=== PATIENT | female | born 1990 | race Caucasian/White ===

== ENCOUNTER 2016-09-11 13:49 | Emergency (ER) | payer MEDICAID ==
[~2016-09-11] VITALS: Ht 165.1 cm; Wt 55.9 kg
[~2016-09-11 13:49] MED LIST: ALBUTEROL0.09 MG/A1 IH; COMBIVENT INH14.7 GM IH; DEPO-PROVER150 MG/M1 IM; FLEXERIL10 MG PO; LORTAB 5/500 501 TAB PO; MACROBID100 MG PO; PERCOCET 5/321 UDTAB PO; PHENERGAN W/CO120 ML PO; PRENATAL VITAMI1 TA5 PO; REGLAN 10MG10 MG/TAB PO; ZOLOFT; [UNRECOGNIZED DRUG - OTHER]
[2016-09-11 13:50] VITALS: BP 112/77; TEMP 99
[2016-09-11] MEDS ORDERED: FIORICET 325 MG1 TA1 PO (13:54)
[2016-09-11] MEDS ORDERED: FLEXERIL 1010 MG/TAB PO (13:54)
[2016-09-11] MEDS ORDERED: CELEXA40 MG PO (13:54)
[2016-09-11] MEDS ORDERED: MERIBIN5 MG PO (13:55)
[2016-09-11] MEDS ORDERED: ZYRTEC 10MG10 MG PO (13:55)
[2016-09-11] MEDS ORDERED: NORCO 325 MG-51 TAB PO (14:35)
[2016-09-11] MEDS ORDERED: PEN-VEE K500 MG PO (14:35)
[2016-09-11 14:49] VITALS: PULSE 92
== END 2016-09-11 14:52 | disposition home or self-care (01) ==
LOC: COL.ER 13:49
DX: K04.7 Periapical abscess without sinus (principal); K03.81 Cracked tooth; F17.210 Nicotine dependence, cigarettes, uncomplicated

== ENCOUNTER → 2016-12-08 | Outpatient (CLI) | payer MEDICAID ==
[~2016-12-08] MED LIST changes: +CELEXA40 MG PO; +FIORICET 325 MG1 TA1 PO; +FLEXERIL 1010 MG/TAB PO; +MERIBIN5 MG PO; +NORCO 325 MG-51 TAB PO; +PEN-VEE K500 MG PO; +ZYRTEC 10MG10 MG PO
== END ==
LOC: MHCPAIN 08:28
DX: G89.29 Other chronic pain (principal); M54.12 Radiculopathy, cervical region; M47.812 Spondylosis without myelopathy or radiculopathy, cervical region; R51 Headache
CPT/HCPCS: G0463

== ENCOUNTER → 2016-12-15 | Outpatient (CLI) | payer MEDICAID | LOC: COL.RAD 12:01 | DX: Q04.8 Other specified congenital malformations of brain (principal); Z86.69 Personal history of other diseases of the nervous system and sense organs | CPT/HCPCS: A9585 ==

== ENCOUNTER → 2017-01-06 | Outpatient (CLI) | payer MEDICAID | LOC: MHCPAIN 12:05 | DX: G89.29 Other chronic pain (principal); M50.90 Cervical disc disorder, unspecified, unspecified cervical region; M54.12 Radiculopathy, cervical region; R51 Headache; F17.210 Nicotine dependence, cigarettes, uncomplicated | CPT/HCPCS: G0463 ==

== ENCOUNTER → 2017-01-08 | Outpatient (CLI) | payer MEDICAID | LOC: MHCPAIN 09:31 | DX: M50.323 Other cervical disc degeneration at C6-C7 level (principal); M54.12 Radiculopathy, cervical region | CPT/HCPCS: J1100; Q9967 ==

== ENCOUNTER → 2017-02-09 | Outpatient (CLI) | payer MEDICAID | LOC: MHCPAIN 12:32 | DX: G89.29 Other chronic pain (principal); M50.90 Cervical disc disorder, unspecified, unspecified cervical region; R51 Headache; M79.2 Neuralgia and neuritis, unspecified; F17.210 Nicotine dependence, cigarettes, uncomplicated | CPT/HCPCS: G0463 ==

== ENCOUNTER → 2017-04-07 | Outpatient (CLI) | payer MEDICAID | LOC: MHCPAIN 11:26 | DX: G89.29 Other chronic pain (principal); M50.322 Other cervical disc degeneration at C5-C6 level; G62.9 Polyneuropathy, unspecified | CPT/HCPCS: G0463 ==

== ENCOUNTER → 2017-05-26 | Outpatient (CLI) | payer MEDICAID | LOC: MHCPAIN 09:29 | DX: G89.29 Other chronic pain (principal); M50.90 Cervical disc disorder, unspecified, unspecified cervical region; F17.210 Nicotine dependence, cigarettes, uncomplicated | CPT/HCPCS: G0463 ==

== ENCOUNTER → 2017-05-26 | Outpatient (CLI) | payer MEDICAID ==
[2017-05-26 11:24] LABS: ADJUSTED CALCIUM 9.1 mg/dL (8.4-10.2); ALBUMIN 4.4 gm/dL (3.5-5.0); BILIRUBIN,TOTAL 0.3 mg/dL (0.0-1.0); CALCIUM 9.4 mg/dL (8.4-10.2); CREATININE, serum 0.63 mg/dL (0.52-1.25); POTASSIUM 4.6 mmol/L (3.4-5.0); TOTAL PROTEIN 7.5 gm/dL (6.4-8.2)
== END ==
LOC: COL.LAB 10:05
PROVIDERS: Anesthesiology Pain Medicine
DX: Z51.81 Encounter for therapeutic drug level monitoring (principal)

== ENCOUNTER → 2017-12-22 | Outpatient (CLI) | payer MEDICAID | LOC: MHCPAIN 11:06 | DX: G89.29 Other chronic pain (principal); M50.90 Cervical disc disorder, unspecified, unspecified cervical region; R51 Headache | CPT/HCPCS: G0463 ==

== ENCOUNTER → 2018-07-05 | Outpatient (CLI) | payer MEDICAID | LOC: MHCPAIN 09:40 | DX: G89.29 Other chronic pain (principal); M54.12 Radiculopathy, cervical region; M54.81 Occipital neuralgia; R51 Headache; M47.812 Spondylosis without myelopathy or radiculopathy, cervical region | CPT/HCPCS: G0463 ==